=== PATIENT | female | born 1985 | race Caucasian/White ===

== ENCOUNTER 2016-11-16 23:13 | Emergency (ER) | payer SELFPAY ==
[~2016-11-16] VITALS: Ht 165.1 cm; Wt 54.9 kg
[~2016-11-16 23:13] MED LIST: CLIN300C93 PO; FERR324T18 PO; FLUO20CA8 PO; FURO40TA6 PO; GABA-827 PO; LACT1CAP24 PO; METH40TA2 PO; MORP30TA3 PO; POTA20TA14 PO; SULF1TAB24 PO; TRAZ100T15 PO
[2016-11-16 23:15] VITALS: BP 123/82
== END 2016-11-17 00:43 | disposition home or self-care (01) ==
LOC: ED 23:59
DX: L03.113 Cellulitis of right upper limb (principal); M25.541 Pain in joints of right hand; F15.10 Other stimulant abuse, uncomplicated; F11.10 Opioid abuse, uncomplicated
CPT/HCPCS: 99283

== ENCOUNTER 2017-07-12 09:00 | Emergency (ER) | payer MEDICAID ==
[~2017-07-12] VITALS: Ht 165.1 cm; Wt 59.6 kg
[~2017-07-12 09:00] MED LIST changes: +CLIN300C8 PO; -CLIN300C93 PO
[2017-07-12 09:02] VITALS: BP 116/80
== END 2017-07-12 10:21 ==
LOC: ED 09:52
DX: K92.2 Gastrointestinal hemorrhage, unspecified (principal); K64.8 Other hemorrhoids; K62.3 Rectal prolapse; F11.10 Opioid abuse, uncomplicated
CPT/HCPCS: 99283

== ENCOUNTER 2017-07-18 02:17 | Emergency (ER) | payer MEDICAID ==
[~2017-07-18] VITALS: Ht 165.1 cm; Wt 57.2 kg
[2017-07-18 02:19] VITALS: BP 110/70
[2017-07-18] MEDS ORDERED: LIDOCAINE 1%, 20ML ONE (03:10)
[2017-07-18] MEDS ORDERED: LIDOCAINE 1%, 20ML SQ ONE (03:30)
== END 2017-07-18 04:27 | disposition home or self-care (01) ==
LOC: ED 02:39
DX: L03.113 Cellulitis of right upper limb (principal); L03.116 Cellulitis of left lower limb
CPT/HCPCS: 10060; 99283

== ENCOUNTER 2017-07-19 18:47 | Emergency (ER) | payer MEDICAID ==
[~2017-07-19] VITALS: Ht 165.1 cm; Wt 59.8 kg
[2017-07-19 18:50] VITALS: BP 114/75
[2017-07-19] MEDS ORDERED: LIDOCAINE 1%, 20ML SQ ONE (19:30)
[2017-07-19] MEDS ORDERED: HYDROmorphone 1 MG/ML, 1ML IVPush PRN (19:30)
[2017-07-19] MEDS ORDERED: SODIUM CHLORIDE 0.9% 1,000ML IVBOLUS ONE (19:30)
[2017-07-19] MEDS ORDERED: SODIUM CHLORIDE FLUSH 10ML SYR IVF ONE (19:30)
[2017-07-19] MEDS ORDERED: CEFTRIAXONE 1,000 MG in SODIUM CHLORIDE 0.9% 50 ML IVPB ONE (19:30)
[2017-07-19] MEDS ORDERED: LIDOCAINE 1%, 20ML ONE (19:37)
[2017-07-19] MEDS ORDERED: CEFTRIAXONE PMX 1GM/50ML 50 ML ONE (19:49)
[2017-07-19] MEDS ORDERED: HYDROmorphone 2 MG/ML, 1ML ONE (19:49)
[2017-07-19] MEDS ORDERED: HYDROmorphone 1 MG/ML, 1ML IM ONE (21:00)
[2017-07-19] MEDS ORDERED: CEFTRIAXONE 1,000 MG IM ONE ×2 (21:00→21:30)
[2017-07-19] MEDS ORDERED: CEFTRIAXONE 1,000 MG ONE (21:01)
== END 2017-07-19 22:28 | disposition home or self-care (01) ==
LOC: ED 19:01
DX: L03.113 Cellulitis of right upper limb (principal); L02.413 Cutaneous abscess of right upper limb
CPT/HCPCS: 96372; 99284; J0696; J1170

== ENCOUNTER 2017-07-20 21:24 | Emergency (ER) | payer MEDICAID ==
[~2017-07-20] VITALS: Ht 165.1 cm; Wt 60.1 kg
[2017-07-20 21:36] VITALS: BP 111/78
== END 2017-07-20 22:57 | disposition home or self-care (01) ==
LOC: ED 22:28
DX: L02.413 Cutaneous abscess of right upper limb (principal)
CPT/HCPCS: 99283

== ENCOUNTER 2017-07-29 01:46 | Emergency (ER) | payer MEDICAID ==
[~2017-07-29] VITALS: Ht 165.1 cm; Wt 60.6 kg
[2017-07-29 01:47] VITALS: BP 121/83
== END 2017-07-29 02:33 | disposition home or self-care (01) ==
LOC: ED 02:27
DX: L02.413 Cutaneous abscess of right upper limb (principal); F17.210 Nicotine dependence, cigarettes, uncomplicated
CPT/HCPCS: 99281